=== PATIENT | male | born 1980 | race Hispanic/Latino ===

== ENCOUNTER 2019-11-04 | Emergency (ER) | payer OTHER ==
[2019-11-04] MEDS ORDERED: MOTRIN400 MG PO (12:16)
[2019-11-04] MEDS ORDERED: TRAMADOL HYDROC50 M1 PO (12:16)
[2019-11-04] MEDS ORDERED: VOLTAREN1%GEL TOP (12:16)
== END 2019-11-04 12:26 | disposition home or self-care (01) | DRG 552 ==
DX: M54.5 Low back pain (principal); F17.220 Nicotine dependence, chewing tobacco, uncomplicated; X50.0XXA Overexertion from strenuous movement or load, initial encounter; Y93.89 Activity, other specified

== ENCOUNTER 2019-12-12 13:52 | Emergency (ER) | payer OTHER ==
[~2019-12-12] VITALS: Ht 185.4 cm; Wt 95.0 kg
[~2019-12-12 13:52] MED LIST: MOTRIN400 MG PO; TRAMADOL HYDROC50 M1 PO; VOLTAREN1%GEL TOP
[2019-12-12 16:00] VITALS: BP 116/74
== END 2019-12-12 16:00 | disposition home or self-care (01) | DRG 951 ==
LOC: ED 13:52
DX: Z20.828 Contact with and (suspected) exposure to other viral communicable diseases (principal)